=== PATIENT | female | born 1990 | race Caucasian/White ===

== ENCOUNTER 2016-08-18 21:46 | Emergency (ER) | payer SELFPAY ==
[~2016-08-18] VITALS: Ht 154.9 cm; Wt 92.0 kg
[2016-08-18 22:05] VITALS: Ht 154.9 cm; Wt 92.0 kg
--- NOTE | 2016-08-19 00:59 | ERD ---
ER Documentation Chief Complaint Date/Time DATE: 08/19/16 TIME: 00:56 Chief Complaint twisted right ankle while running around 1700 today HPI Patient is a 25-year-old female who presents to the ED with right ankle pain after sustaining a fall today when she was running. She states that she was running and inverted her right ankle. She denies hitting her head, passing out or losing consciousness. She also states that she scraped her left knee. She is able to ambulate but she does have pain when she applies pressure to her right foot. She denies radiation of pain. She denies abdominal pain or chest pain or shortness of breath. Denies recent travel or recent surgeries. No other complaints. Patient has received a recent tetanus in the last 10 years. ROS All systems reviewed and are negative except as per history of present illness. Medications Home Meds Active Scripts Naproxen* (Naprosyn*) 500 Mg Tablet, 500 MG PO BID Y for PAIN AND/OR INFLAMMATION, #30 TAB Prov:OMAR POZO PA-C 08/19/16 Allergies Allergies: Coded Allergies: No Known Drug Allergies (Verified Allergy, Unknown, 08/18/16) PMhx/Soc Medical and Surgical Hx: pt denies Medical Hx, pt denies Surgical Hx History of Surgery: No Anesthesia Reaction: No Hx Neurological Disorder: No Hx Respiratory Disorders: No Hx Cardiac Disorders: No Hx Psychiatric Problems: No Hx Miscellaneous Medical Probl: No Hx Alcohol Use: No Hx Substance Use: No Hx Tobacco Use: No Smoking Status: Never smoker FmHx Family History: No coronary disease, No diabetes, No other Physical Exam Vitals Vital Signs Date Time Temp Pulse Resp B/P Pulse Ox O2 Delivery O2 Flow Rate FiO2 08/18/16 22:05 98.7 87 20 140/89 9 Physical Exam GENERAL: Well-developed, well-nourished female. Appears in no acute distress. LUNG: Clear to auscultation bilaterally. No rhonchi, wheezing, rales or coarse breath sounds. HEART: Regular rate and rhythm. No murmurs, rubs or gallops. Extremities: Equal pulses bilaterally. No peripheral clubbing, cyanosis or edema. No unilateral leg swelling. Tenderness to lateral malleoli of the right ankle. No open wounds, deformities or step offs. No laceration. No signs of infection. Pulses intact bilaterally. Non tender to proximal fibular. Sensation intact bilaterally. Negative Lily sign. dorsiflexion, extension, inversion and eversion intact bilaterally. Left knee has superficial abrasion no laceration or open wounds. NEUROLOGIC: Alert and oriented. Moving all four extremities. 5/5 strength in all extremities. Normal speech. non Steady gait. SKIN: Normal color. Warm and dry. No rashes or lesions. Capillary refill < 2 seconds Procedures/MDM ER COURSE: I kept the patient and/or family informed of laboratory and diagnostic imaging results throughout the emergency room course. IMAGING STUDIES [place] [address] Radiology Main Line: [phone] DIAGNOSTIC IMAGING REPORT Patient: JOSÉ MIGUEL FAN : 1990 Age: 25 Sex: F MR #: [id number] DOS: 08/19/16 0044 Ordering MD: OMAR POZO PA-C Location: [facility] Room/Bed: PROCEDURE: X-ray right ankle CLINICAL INDICATION: Right ankle pain TECHNIQUE: 3 views right ankle COMPARISON: None FINDINGS: No acute fracture or dislocation. Soft tissue swelling over the lateral ankle. IMPRESSION: No acute fracture. RPTAT: [facility] Physician Munir Date Time Electronically viewed and signed by Physician Munir on 08/19/2016 01:28 RS/ CC: OMAR POZO PA-C PROCEDURES [Lincoln wrap Assessment: Neurovascularly intact post lincoln wrap placement with good fit.] Patient's extremity symptoms have stabilized while they have been evaluated in the department and are appropriate for outpatient follow up MEDICAL DECISION MAKING: This is a 25-year-old who presents with right ankle pain 1 day. Vital signs were reviewed. Patient is afebrile. Patient is not hypoxic. Patient is nontoxic or ill-appearing. Her x-rays of by radiologist is unremarkable. Patient likely has ankle sprain versus strain. Low suspicion for dislocation, fracture, septic joint, compartment syndrome, osteomyelitis, cellulitis, avascular necrosis, neurological injury, vascular injury, tendon laceration. I do not think any further imaging studies is warranted at this time as patient does not have pain in other areas. DISCHARGE: At this time, patient is stable for discharge and outpatient management with no new complaints during the ER course. Patient was sent home with Usamaros[employer] for pain, note for work, Lincoln wrap and crutches. Advised patient to elevate, rest and use ice.. Patient will be discharged home with instructions to recheck for new or worsening symptoms such as fever, nausea, weakness, LOC and to follow up with primary care in the next 1-2 days. Patient was advised to return to the ER for any new or worsening symptoms. Plan was discussed and patient and/or family understands and agrees. Home instructions were given. Departure Diagnosis: Primary Impression: Ankle pain Laterality: right Chronicity: acute Qualified Code: M25.571 - Acute right ankle pain Condition: Stable OMAR POZO PA-C Aug 19, 2016 00:59
--- NOTE | 2016-08-19 01:28 | RADRPT ---
PROCEDURE: X-ray right ankle CLINICAL INDICATION: Right ankle pain TECHNIQUE: 3 views right ankle COMPARISON: None FINDINGS: No acute fracture or dislocation. Soft tissue swelling over the lateral ankle. IMPRESSION: No acute fracture. RPTAT: [facility] Physician Munir Date Time Electronically viewed and signed by Dean Sanders Physician on 08/19/2016 01:28 RS/
[2016-08-19] MEDS ORDERED: NAPR-260 PO (01:40)
== END 2016-08-19 02:08 | disposition home or self-care (01) ==
LOC: FTE 21:46
DX: M25.571 Pain in right ankle and joints of right foot (principal)